=== PATIENT | male | born 1980 | race African-American/Black ===

== ENCOUNTER 2017-02-12 05:05 | Emergency (ER) | payer OTHER ==
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
[2017-02-12] MEDS ORDERED: IBUPROFEN 400 MG TABLET (FP) PO ONE (05:25)
[2017-02-12 05:31] VITALS: BMI 37.3
--- NOTE | 2017-02-12 06:49 | PDOC ---
Attending Attestation - Resident Resident Name: AnthonytigistmanoloPalmer - ED Attending Attestation I have performed the following: I have examined & evaluated the patient, The case was reviewed & discussed with the resident, I agree w/resident's findings & plan - HPI HPI: 02/12/17 06:48 Pt fell yesterday - Physicial Exam PE: 02/12/17 06:48 Agree with resident exam - Medical Decision Making 02/12/17 06:48 XRAY appears normal
--- NOTE | 2017-02-12 07:34 | PDOC ---
*Physical Exam - Vital Signs Last Vital Signs Temp Pulse Resp BP Pulse Ox 98.0 F 78 18 128/88 98 02/12/17 05:28 02/12/17 05:28 02/12/17 05:28 02/12/17 05:28 02/12/17 05:28 ED Treatment Course - Medications Given in the ED: ED Medications Discontinued Medications Generic Name Dose Route Start Last Admin Trade Name Fede PRN Reason Stop Dose Admin Ibuprofen 800 mg 02/12/17 05:25 02/12/17 05:39 Motrin - PO 02/12/17 05:26 800 mg ONCE ONE Administration Medical Decision Making - Medical Decision Making 36 year old male relatively healthy male with fall on outstretched right hand. Fracture negative. Will DC home with symptomatic therapy. 02/12/17 07:29 *DC/Admit/Observation/Transfer Diagnosis at time of Disposition: Hand injury Qualifiers: Encounter type: initial encounter Laterality: right Qualified Code(s): S69.91XA - Unspecified injury of right wrist, hand and finger(s), initial encounter - Discharge Dispostion Disposition: HOME Condition at time of disposition: Improved Admit: No - Referrals Referrals: Caitlin Tejada MD [Primary Care Provider] - - Patient Instructions Additional Instructions: You did not have a break of your forearm or wrist. Please use ice, Tylenol, or Motrin for the pain. Please follow up with your primary care physician if you are still having pain. - Post Discharge Activity
[2017-02-12 07:46] VITALS: BP 121/75; PULSE 80; TEMP 98.1
== END 2017-02-12 07:46 | disposition home or self-care (01) ==
LOC: JER 05:05
DX: S69.81XA Other specified injuries of right wrist, hand and finger(s), initial encounter (principal); W00.2XXA Other fall from one level to another due to ice and snow, initial encounter; Y93.89 Activity, other specified; Y92.018 Other place in single-family (private) house as the place of occurrence of the external cause
CPT/HCPCS: 73090-TC-RT; 73110-TC-RT; 73130-TC-RT; 99283-25

== ENCOUNTER 2018-08-12 00:51 | Emergency (ER) | payer OTHER ==
[2018-08-12] MEDS ORDERED: KETOROLAC TROMETHAMINE 60 MG/2 ML VIAL IM ONE (01:39)
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
[2018-08-12] MEDS ORDERED: KETOROLAC TROMETHAMINE 60 MG/2 ML VIAL ONE (03:28)
[2018-08-12 03:47] VITALS: TEMP 98.6; BMI 41.3
[2018-08-12] MEDS ORDERED: COLCHICINE 0.6 MG CAP PO ONE (04:37)
[2018-08-12] MEDS ORDERED: predniSONE 20 MG TABLET (UD) PO ONE (04:37)
[2018-08-12] MEDS ORDERED: predniSONE 20 MG TABLET (UD) ONE (05:09)
[2018-08-12] MEDS ORDERED: COLCHICINE 0.6 MG CAP ONE (05:09)
[2018-08-12 05:39] VITALS: BP 135/93; PULSE 74
== END 2018-08-12 05:39 | disposition home or self-care (01) ==
LOC: JER 00:51
PROC: 3E0233Z Introduction of Anti-inflammatory into Muscle, Percutaneous Approach (ICD-10-PCS; principal; 2018-08-12)
DX: M79.674 Pain in right toe(s) (principal)
CPT/HCPCS: 73630-TC-RT-FY; 96372; 99282-25

== ENCOUNTER 2020-10-22 17:02 | Emergency (ER) | payer OTHER ==
[2020-10-22 17:38] VITALS: BP 132/85; PULSE 83; BMI 38.0
[2020-10-22 22:00] LABS: BASO % 0.4 % (0-2.0); EOS % 0.5 % (0-4.5); HEMATOCRIT 45.8 % (35.4-49); HEMOGLOBIN 15.8 GM/dL (11.7-16.9); LYMPH % 29.1 % (8-40); MCH 30.1 pg (25.7-33.7); MCHC 34.5 g/dl (32.0-35.9); MEAN CELL VOLUME 87.2 fl (80-96); MEAN PLT VOLUME 8.8 fl (7.5-11.1); MONO % 16.2 % (3.8-10.2); NEUT % 53.8 % (42.8-82.8); PLATELET COUNT 219 10^3/uL (134-434); RBC 5.25 M/mm3 (4.00-5.60); RDW 14.4 % (11.9-15.9)
[2020-10-22] MEDS ORDERED: DIPHTH,PERTUSS(ACELL),TET 0.5 ML DISP.SYRIN IM ONE ×2 (22:12→22:29)
[2020-10-22 22:23] LABS: CHLORIDE 95 mmol/L (98-107); SODIUM 132 mmol/L (136-145)
[2020-10-22 22:25] LABS: ALBUMIN 4.9 g/dl (3.4-5.0); ANION GAP 11 MMOL/L (8-16); BLOOD UREA NITROGEN 18.8 mg/dL (7-18); CALCIUM 9.4 mg/dL (8.5-10.1); CO2 26 mmol/L (21-32); MAGNESIUM 2.9 mg/dL (1.8-2.4)
[2020-10-22 22:26] LABS: GLUCOSE,RANDOM 102 mg/dL (74-106)
[2020-10-22 22:27] LABS: SGPT/ALT 125 U/L (13-61)
[2020-10-22 22:29] LABS: CREATININE 1.3 mg/dL (0.55-1.3); SGOT/AST 214 U/L (15-37)
[2020-10-22 22:30] LABS: BILIRUBIN,TOTAL 1.1 mg/dL (0.2-1); TOT PROT 8.9 g/dl (6.4-8.2)
[2020-10-22 22:31] LABS: ALK PHOS 69 U/L (45-117)
[2020-10-22] MEDS ORDERED: SODIUM CHLORIDE 0.9% 500 ML INFUS.BAG IV ONE (23:06)
== END 2020-10-23 00:54 | disposition left against medical advice (07) ==
LOC: JER 17:02
PROC: 3E0234Z Introduction of Serum, Toxoid and Vaccine into Muscle, Percutaneous Approach (ICD-10-PCS; principal; 2020-10-22)
DX: R55 Syncope and collapse (principal); R56.9 Unspecified convulsions; M62.82 Rhabdomyolysis
CPT/HCPCS: 36415; 70450-TC; 70486-TC; 71045-TC-FY; 72125-TC; 80053; 82550; 82553; 83735; 84484; 85025; 85730; 90471; 90715; 93005; 93010; 99285-25; C9803; U0003; U0005

== ENCOUNTER 2020-12-11 07:53 | Inpatient (IN) | payer OTHER ==
[2020-12-11] MEDS ORDERED: KETOROLAC TROMETHAMINE 30 MG/1 ML VIAL IM ONE (09:52)
[2020-12-11] MEDS ORDERED: KETOROLAC TROMETHAMINE 30 MG/1 ML VIAL ONE (09:55)
[2020-12-11 10:45] LABS: HEMATOCRIT 47.8 % (35.4-49); HEMOGLOBIN 16.7 GM/dL (11.7-16.9); MCH 30.3 pg (25.7-33.7); MEAN CELL VOLUME 86.7 fl (80-96); MEAN PLT VOLUME 9.9 fl (7.5-11.1); PLATELET COUNT 166 10^3/uL (134-434); RBC 5.51 M/mm3 (4.00-5.60); RDW 14.6 % (11.9-15.9); WHITE BLOOD COUNT 5.2 K/mm3 (4.0-10.0)
[2020-12-11 11:07] LABS: ALBUMIN 4.6 g/dl (3.4-5.0); BLOOD UREA NITROGEN 73.8 mg/dL (7-18); CALCIUM 8.7 mg/dL (8.5-10.1)
[2020-12-11 11:10] LABS: CREATININE 7.3 mg/dL (0.55-1.3)
[2020-12-11 11:12] LABS: BILIRUBIN,TOTAL 0.7 mg/dL (0.2-1); TOT PROT 9.3 g/dl (6.4-8.2)
[2020-12-11 12:00] LABS: ANISOCYTOSIS 1+; MACROCYTOSIS 0; OVALOCYTE 1+; PLATELET ESTIMATE NORMAL
[2020-12-11] MEDS ORDERED: CASIRIVIMAB/IMDEVIMAB 10 ML in SODIUM CHLORIDE 100 ML IVPB ONE (12:24)
[2020-12-11] MEDS ORDERED: SODIUM CHLORIDE 0.9% 1000 ML INFUS.BAG IV ONE (12:25)
[2020-12-11] MEDS ORDERED: SODIUM CHLORIDE 1,000 ML IV SCH (13:45)
[2020-12-11] MEDS ORDERED: HEPARIN NA (PORCINE) 5,000 UNITS/ML 1ML VIAL ONE (16:05)
[2020-12-11] MEDS: HEPARIN NA (PORCINE) 5,000 UNITS/ML 1ML VIAL SQ SCH ×2 (16:21→22:48)
[2020-12-11] MEDS: ASCORBIC ACID 250 MG TABLET (FP) PO SCH (22:49)
[2020-12-11] MEDS ORDERED: ASPIRIN 81 MG CHEWABLE TABLETS PO ONE (23:12)
[2020-12-11] MEDS ORDERED: ACETAMINOPHEN 325 MG TABLET (FP) PO PRN (23:53)
[2020-12-11] MEDS ORDERED: guaiFENesin 200 MG/10 ML 10 ML UNIT-DOSE CUPS PO PRN (23:54)
[2020-12-11] MEDS ORDERED: ALBUTEROL SO4 HFA INHALER IH PRN (23:56)
[2020-12-12] MEDS: ACETAMINOPHEN 325 MG TABLET (FP) PO PRN ×2 (00:43→22:20)
[2020-12-12] MEDS: HEPARIN NA (PORCINE) 5,000 UNITS/ML 1ML VIAL SQ SCH ×3 (06:06→22:13)
[2020-12-12 08:39] LABS: INR 0.96 (0.83-1.09); PROTHROMBIN TIME (PATIENT) 10.8 SEC (9.7-13.0)
[2020-12-12 08:41] LABS: HEMATOCRIT 42.1 % (35.4-49); HEMOGLOBIN 14.6 GM/dL (11.7-16.9); MCH 30.1 pg (25.7-33.7); MCHC 34.7 g/dl (32.0-35.9); MEAN CELL VOLUME 86.7 fl (80-96); MEAN PLT VOLUME 9.7 fl (7.5-11.1); PLATELET COUNT 138 10^3/uL (134-434); RBC 4.85 M/mm3 (4.00-5.60); RDW 14.5 % (11.9-15.9); WHITE BLOOD COUNT 4.4 K/mm3 (4.0-10.0)
[2020-12-12 09:01] LABS: BLOOD UREA NITROGEN 77.8 mg/dL (7-18); CALCIUM 7.9 mg/dL (8.5-10.1); MAGNESIUM 2.6 mg/dL (1.8-2.4)
[2020-12-12 09:04] LABS: CREATININE 3.9 mg/dL (0.55-1.3)
[2020-12-12 09:06] LABS: TOT PROT 7.7 g/dl (6.4-8.2)
[2020-12-12 09:07] LABS: BILIRUBIN,TOTAL 0.4 mg/dL (0.2-1)
[2020-12-12 09:10] LABS: ALBUMIN 3.6 g/dl (3.4-5.0)
[2020-12-12 10:17] LABS: ANISOCYTOSIS 1+; MACROCYTOSIS 0; OVALOCYTE 1+; PLATELET ESTIMATE DECREASED; TEAR DROP CELLS 1+
[2020-12-12] MEDS: CHOLECALCIFEROL (VIT D3) 1,000 UNIT (25 MCG) TABLET PO SCH (10:46)
[2020-12-12] MEDS: ZINC SULFATE 220 MG CAPSULE (FP) PO SCH (10:46)
[2020-12-12] MEDS: SODIUM CHLORIDE 1,000 ML IV SCH ×2 (10:47→13:10)
[2020-12-12] MEDS: ASCORBIC ACID 250 MG TABLET (FP) PO SCH ×2 (10:47→22:24)
[2020-12-12 15:07] VITALS: BMI 34.2
[2020-12-12] MEDS: DEXAMETHASONE SOD PHOSPHATE 10 MG/1 ML VIAL IVPUSH SCH (17:41)
[2020-12-12] MEDS: BUDESONIDE/FORMETEROL FUMARATE 160/4.5 mcg INHALER IH SCH (22:15)
[2020-12-13] MEDS: HEPARIN NA (PORCINE) 5,000 UNITS/ML 1ML VIAL SQ SCH ×3 (06:17→21:14)
[2020-12-13] MEDS: SODIUM CHLORIDE 1,000 ML IV SCH ×2 (06:20→14:19)
[2020-12-13 08:29] LABS: BASO % 1.5 % (0-2.0); HEMATOCRIT 41.5 % (35.4-49); HEMOGLOBIN 14.1 GM/dL (11.7-16.9); LYMPH % 22.2 % (8-40); MCH 29.6 pg (25.7-33.7); MCHC 33.9 g/dl (32.0-35.9); MEAN CELL VOLUME 87.3 fl (80-96); MEAN PLT VOLUME 9.2 fl (7.5-11.1); MONO % 22.8 % (3.8-10.2); NEUT % 53.5 % (42.8-82.8); PLATELET COUNT 136 10^3/uL (134-434); RBC 4.75 M/mm3 (4.00-5.60); RDW 14.4 % (11.9-15.9); WHITE BLOOD COUNT 2.5 K/mm3 (4.0-10.0)
[2020-12-13 08:49] LABS: ALBUMIN 3.4 g/dl (3.4-5.0); CALCIUM 8.4 mg/dL (8.5-10.1)
[2020-12-13 08:50] LABS: MAGNESIUM 2.9 mg/dL (1.8-2.4)
[2020-12-13 08:53] LABS: CREATININE 1.3 mg/dL (0.55-1.3); PHOSPHOROUS 2.4 mg/dL (2.5-4.9)
[2020-12-13 08:54] LABS: BILIRUBIN,TOTAL 0.6 mg/dL (0.2-1); TOT PROT 7.6 g/dl (6.4-8.2)
[2020-12-13] MEDS: ACETAMINOPHEN 325 MG TABLET (FP) PO PRN (08:58)
[2020-12-13 09:05] LABS: BLOOD UREA NITROGEN 50.8 mg/dL (7-18)
[2020-12-13] MEDS ORDERED: PT OWN MED DRAWER 7, Y5N ONE ×5 (09:46→21:09)
[2020-12-13] MEDS: ZINC SULFATE 220 MG CAPSULE (FP) PO SCH (09:49)
[2020-12-13] MEDS: CHOLECALCIFEROL (VIT D3) 1,000 UNIT (25 MCG) TABLET PO SCH (09:50)
[2020-12-13] MEDS: ASCORBIC ACID 250 MG TABLET (FP) PO SCH ×2 (09:50→21:14)
[2020-12-13] MEDS: BUDESONIDE/FORMETEROL FUMARATE 160/4.5 mcg INHALER IH SCH ×2 (09:50→21:14)
[2020-12-13] MEDS: DEXAMETHASONE SOD PHOSPHATE 10 MG/1 ML VIAL IVPUSH SCH (09:51)
[2020-12-13 10:47] LABS: ANISOCYTOSIS 0; HELMET CELLS 0; HOWELL-JOLLY BODIES 0; MACROCYTOSIS 0; OVALOCYTE 0; PLATELET ESTIMATE DECREASED; ROULEAU 0; SICKELED CELLS 0; TARGET CELLS 0; TEAR DROP CELLS 0; TOXIC GRANULATION 0
[2020-12-13] MEDS: AMOXICILLIN 500 MG CAPSULE (FP) PO SCH ×3 (11:43→21:14)
[2020-12-13 14:47] LABS: PH,URINE 5.5 (5.0-8.0); URINE APPEARANCE CLEAR; URINE BILIRUBIN NEGATIVE (NEGATIVE); URINE COLOR YELLOW; URINE GLUCOSE (UA) NEGATIVE (NEGATIVE); URINE KETONE NEGATIVE (NEGATIVE); URINE LEUK ESTERASE NEGATIVE (NEGATIVE); URINE NITRITE NEGATIVE (NEGATIVE); URINE PROTEIN TRACE (NEGATIVE); URINE UROBILINOGEN 0.2 mg/dL (0.2-1.0)
[2020-12-14] MEDS: AMOXICILLIN 500 MG CAPSULE (FP) PO SCH ×3 (05:57→21:18)
[2020-12-14] MEDS: HEPARIN NA (PORCINE) 5,000 UNITS/ML 1ML VIAL SQ SCH ×3 (05:57→21:18)
[2020-12-14] MEDS: ACETAMINOPHEN 325 MG TABLET (FP) PO PRN ×2 (06:27→21:18)
[2020-12-14 09:06] LABS: BASO % 0.6 % (0-2.0); HEMATOCRIT 39.3 % (35.4-49); HEMOGLOBIN 13.6 GM/dL (11.7-16.9); LYMPH % 21.9 % (8-40); MCHC 34.6 g/dl (32.0-35.9); MEAN CELL VOLUME 86.7 fl (80-96); MEAN PLT VOLUME 9.7 fl (7.5-11.1); MONO % 16.8 % (3.8-10.2); NEUT % 60.7 % (42.8-82.8); PLATELET COUNT 150 10^3/uL (134-434); RBC 4.53 M/mm3 (4.00-5.60); RDW 14.4 % (11.9-15.9); WHITE BLOOD COUNT 5.4 K/mm3 (4.0-10.0)
[2020-12-14 09:21] LABS: ALBUMIN 3.1 g/dl (3.4-5.0); CALCIUM 8.4 mg/dL (8.5-10.1)
[2020-12-14 09:23] LABS: BLOOD UREA NITROGEN 36.5 mg/dL (7-18)
[2020-12-14 09:26] LABS: BILIRUBIN,TOTAL 0.2 mg/dL (0.2-1)
[2020-12-14] MEDS: ASCORBIC ACID 250 MG TABLET (FP) PO SCH ×4 (09:28→21:18)
[2020-12-14] MEDS: CHOLECALCIFEROL (VIT D3) 1,000 UNIT (25 MCG) TABLET PO SCH ×3 (09:28→14:37)
[2020-12-14] MEDS: BUDESONIDE/FORMETEROL FUMARATE 160/4.5 mcg INHALER IH SCH ×4 (09:28→21:18)
[2020-12-14] MEDS: ZINC SULFATE 220 MG CAPSULE (FP) PO SCH ×3 (09:28→14:37)
[2020-12-14] MEDS: DEXAMETHASONE SOD PHOSPHATE 10 MG/1 ML VIAL IVPUSH SCH ×3 (09:29→14:37)
[2020-12-14] MEDS: SODIUM CHLORIDE 1,000 ML IV SCH (11:09)
[2020-12-14] MEDS ORDERED: PT OWN MED DRAWER 7, Y5N ONE ×2 (13:58→21:12)
[2020-12-15] MEDS ORDERED: PT OWN MED DRAWER 7, Y5N ONE (05:15)
[2020-12-15] MEDS: ACETAMINOPHEN 325 MG TABLET (FP) PO PRN (05:27)
[2020-12-15] MEDS: AMOXICILLIN 500 MG CAPSULE (FP) PO SCH ×2 (05:27→14:08)
[2020-12-15] MEDS: HEPARIN NA (PORCINE) 5,000 UNITS/ML 1ML VIAL SQ SCH ×2 (05:27→14:08)
[2020-12-15] MEDS: ASCORBIC ACID 250 MG TABLET (FP) PO SCH (09:09)
[2020-12-15] MEDS: DEXAMETHASONE SOD PHOSPHATE 10 MG/1 ML VIAL IVPUSH SCH (09:09)
[2020-12-15] MEDS: BUDESONIDE/FORMETEROL FUMARATE 160/4.5 mcg INHALER IH SCH (09:09)
[2020-12-15] MEDS: CHOLECALCIFEROL (VIT D3) 1,000 UNIT (25 MCG) TABLET PO SCH (09:09)
[2020-12-15] MEDS: ZINC SULFATE 220 MG CAPSULE (FP) PO SCH (09:09)
[2020-12-15] MEDS: SODIUM CHLORIDE 1,000 ML IV SCH (09:10)
[2020-12-15 13:06] LABS: ANTIGLOMERULAR BASEMENT MEN.AB 3 units (0-20)
[2020-12-15 14:33] VITALS: BP 129/57; PULSE 74; TEMP 98.3
[2020-12-15 16:08] LABS: ATYPICAL pANCA <1:20 titer (Neg:<1:20); C-ANCA <1:20 titer (Neg:<1:20)
== END 2020-12-15 14:52 | disposition home or self-care (01) | DRG 137 ==
LOC: JER 07:53 → UNDOADMOB 12:25 → INTOOBSV 12:25 → JERBED 12:25 → OBSVTOIN 13:39 → J8W 18:41
PROVIDERS: ADMIT Internal Medicine
PROC: XW033G6 Introduction of REGN-COV2 Monoclonal Antibody into Peripheral Vein, Percutaneous Approach, New Technology Group 6 (ICD-10-PCS; principal; 2020-12-11)
DX: U07.1 COVID-19 (principal); N17.9 Acute kidney failure, unspecified; E87.1 Hypo-osmolality and hyponatremia; E86.0 Dehydration; K76.0 Fatty (change of) liver, not elsewhere classified; E87.2 Acidosis; J98.01 Acute bronchospasm; F17.200 Nicotine dependence, unspecified, uncomplicated; R94.5 Abnormal results of liver function studies; R09.02 Hypoxemia; I10 Essential (primary) hypertension; E78.5 Hyperlipidemia, unspecified; E66.9 Obesity, unspecified; Z68.34 Body mass index [BMI] 34.0-34.9, adult; K04.7 Periapical abscess without sinus; Z79.1 Long term (current) use of non-steroidal anti-inflammatories (NSAID)
CPT/HCPCS: 36415; 71046-TC-FY; 76700-TC; 80053; 81003; 82570; 82728; 83036; 83516; 83520; 83615; 83735; 84100; 84156; 84300; 84484; 85025; 85379; 85610; 85651; 86038; 86140; 86225; 86256; 86706; 87040; 87070; 87205; 87340; 87517; 87522; 93005; 93010; 99285-25; C9803; G0378; J1100; J1644; Q0240; U0003; U0005

== ENCOUNTER 2020-12-23 23:21 | Emergency (ER) | payer OTHER ==
[2020-12-23 23:26] VITALS: BP 142/84; PULSE 80; TEMP 98.7; BMI 35.9
== END 2020-12-24 01:02 | disposition home or self-care (01) ==
LOC: JERFT 23:21
DX: I82.612 Acute embolism and thrombosis of superficial veins of left upper extremity (principal)
CPT/HCPCS: 93971; 99284-25

== ENCOUNTER 2021-11-09 13:56 | Emergency (ER) | payer OTHER ==
[2021-11-09 14:14] VITALS: BP 147/82; PULSE 92; RESP 18; TEMP 98.1; BMI 38.0
[2021-11-09] MEDS ORDERED: KETOROLAC TROMETHAMINE 30 MG/1 ML VIAL IM ONE (15:54)
[2021-11-09] MEDS ORDERED: ACETAMINOPHEN 500 MG TABLET (FP) PO ONE (15:54)
[2021-11-09] MEDS ORDERED: KETOROLAC TROMETHAMINE 30 MG/1 ML VIAL ONE (15:58)
[2021-11-09] MEDS ORDERED: ACETAMINOPHEN 500 MG TABLET (FP) ONE (15:58)
== END 2021-11-09 17:20 | disposition home or self-care (01) ==
LOC: JER 13:56
PROC: 3E023GC Introduction of Other Therapeutic Substance into Muscle, Percutaneous Approach (ICD-10-PCS; principal; 2021-11-09)
DX: M79.675 Pain in left toe(s) (principal)
CPT/HCPCS: 73630-TC-LT; 99284-25

== ENCOUNTER 2022-05-13 17:18 | Emergency (ER) | payer OTHER ==
[2022-05-13 17:23] VITALS: BP 123/72; PULSE 93; RESP 16; TEMP 98.2; BMI 36.6
[2022-05-13] MEDS ORDERED: KETOROLAC TROMETHAMINE 30 MG/1 ML VIAL IM ONE (18:20)
[2022-05-13] MEDS ORDERED: KETOROLAC TROMETHAMINE 30 MG/1 ML VIAL ONE (18:44)
== END 2022-05-13 18:47 | disposition home or self-care (01) ==
LOC: JERFT 17:18
PROC: 3E023GC Introduction of Other Therapeutic Substance into Muscle, Percutaneous Approach (ICD-10-PCS; principal; 2022-05-13)
DX: M25.462 Effusion, left knee (principal)
CPT/HCPCS: 73564-TC-LT-FY; 99284-25